=== PATIENT | female | born 1995 | race Caucasian/White ===

== ENCOUNTER 2019-01-23 09:13 | Outpatient (CLI) | payer BC ==
--- NOTE | 2019-01-23 10:34 | ULT ---
Thyroid ultrasound: 01/23/2019 COMPARISON: None HISTORY: Evaluate thyroid nodule TECHNIQUE: Multiplanar grayscale sonographic imaging of the thyroid gland obtained. FINDINGS: The thyroid isthmus measures 2 mm in AP dimension. The right lobe measures 4.0 x 1.6 x 1.8 cm and the left lobe measures 4.9 x 1.8 x 1.9 cm. There is no discrete thyroid nodule noted within the isthmus or right lobe. There is a small hypoechoic nodule within the inferior aspect of the left lobe measuring 7 x 5 x 6 mm . There are questionable punctate calcifications associated with this nodule. IMPRESSION: TI-RADS category 5-highly suspicious. Recommendations for a TI RADS category 5 lesion is follow-up if greater than or equal to 5 mm. As this nodule measures less than 1 cm, fine-needle aspiration is not recommended at this time. Recommend follow-up thyroid ultrasound in 6 months.
== END 2019-01-23 09:14 | disposition home or self-care (01) ==
LOC: BICULT 09:13
PROVIDERS: ATTEND Obstetrics & Gynecology
DX: E04.1 Nontoxic single thyroid nodule (principal)
CPT/HCPCS: 76536